=== PATIENT | female | born 1960 | race Caucasian/White ===

== ENCOUNTER 2023-12-07 20:57 | Emergency (ER) | payer MEDICARE, MEDICAID ==
[~2023-12-07] VITALS: Ht 157.5 cm; Wt 82.7 kg
[2023-12-07 21:00] VITALS: BP 152/77; PULSE 106; O2SAT 97
[2023-12-07 21:54] VITALS: RESP 14
[2023-12-07] MEDS ORDERED: CEPH-585 PO (22:24)
[2023-12-07] MEDS ORDERED: SULF1TAB49 PO (22:24)
[2023-12-07] MEDS: sulfamethoxazole/trimethoprim DS (800/160mg) tablet PO ONE (22:45)
[2023-12-07] MEDS: cephalexin 250mg capsule PO ONE (22:45)
[2023-12-07 22:48] VITALS: TEMP 98.5
== END 2023-12-07 22:49 | disposition home or self-care (01) ==
LOC: ER 20:59
DX: L03.116 Cellulitis of left lower limb (principal); M25.562 Pain in left knee; J44.9 Chronic obstructive pulmonary disease, unspecified; M19.90 Unspecified osteoarthritis, unspecified site; Z79.2 Long term (current) use of antibiotics
CPT/HCPCS: 73564; 99283